=== PATIENT | male | born 1980 | race Hispanic/Latino ===

== ENCOUNTER 2022-12-04 12:01 | Emergency (ER) | payer MEDICAID, SELFPAY ==
--- NOTE | ~2022-12-04 | XR_ITS ---
EXAMINATION: XR finger 4th RT min 2V INDICATION: Right fourth finger pain TECHNIQUE: Three views of the right fourth finger are obtained. COMPARISON: None available FINDINGS: Bone alignment is normal. There is no fracture. There is soft tissue swelling of the finger . IMPRESSION: 1. Soft tissue swelling without acute osseous abnormality. Reviewed, dictated and finalized at location [facility]
[2022-12-04 12:12] VITALS: BP 121/82; PULSE 55; RESP 16; TEMP 37.1; O2SAT 99
--- NOTE | 2022-12-04 13:29 | ED.GENADULT ---
HPI - General Adult General Chief complaint: Extremity Injury, Upper Stated complaint: right ring finger injury Time Seen by Provider: 12/04/22 13:20 Source: patient, RN notes reviewed and old records reviewed Mode of arrival: ambulatory Limitations: no limitations, language barrier and other (son here to interpret for father) History of Present Illness HPI narrative: 42 year old male accompanied by son presents to express care with complaints of injury to his right 4th finger when he was walking a horse and the horse got scared and pulled on the rope causing his right ring finger to become hyperextended. Patient concerned for possible fracture due to discomfort and swelling of right 4t finger. Circulation sensation and mobility to right 4th finger intact MD complaint: injury to left ring finger Onset (ago): hour(s) (1130 today) Location: right and upper extremity (4th finger) Severity scale (1-10): 6 Treatments prior to arrival: none Related Data Allergies Allergy/AdvReac Type Severity Reaction Status Date / Time No Known Allergies Allergy Verified 12/04/22 13:37 Review of Systems Review of Systems: CONSTITUTIONAL: Denies fever, chills, or sweats. EYES: Denies visual changes, redness, or discharge. ENT: Denies rhinorrhea, congestion, sore throat, or otalgia. CARDIOVASCULAR: Denies chest pain, palpitations, or edema. RESPIRATORY: Denies cough or dyspnea. GASTROINTESTINAL: Denies abdominal pain, nausea, vomiting, or diarrhea. GENITOURINARY: Denies dysuria or hematuria. SKIN: Denies rash or itching. MUSCULOSKELETAL: Denies back pain,positive for right 4th finger discomfort, or myalgia. NEUROLOGIC: Denies headache, numbness, or weakness. PSYCHIATRIC: Denies anxiety or depression. All systems reviewed & are unremarkable except as noted in HPI and below PMFSH Comments At time of signature, agree with nursing past medical, surgical, social and family history. There is no relevant family history pertinent to the presenting complaint Exam Narrative: GENERAL: Well-appearing, well-nourished, and in no acute distress. HEAD: Normocephalic, atraumatic. EYES: PERRLA and EOMI. ENT: Nares clear, no rhinorrhea or epistaxis. Mucous membranes moist.TM's normal with good light reflex, throat pink with no lesions or exudates. NECK: Supple.no lymphadenopathy CHEST: Clear to auscultation. No respiratory distress.SAO2 99% on room air HEART: Regular rate and rhythm. No murmur heard. Normal peripheral pulses. ABDOMEN: Soft, nontender, nondistended, normal active bowel sounds. EXTREMITIES: Normal range of motion. mild edema to mid aspect of right 4th finger with full mobility of left 4th finger and no obvious deformity. SKIN: Warm, dry, no rash. NEURO: No focal deficits. Alert and oriented x3. Course Course Emergency Course: Patient is aware of diagnosis, understands and agrees to treatment plan.? Anticipatory guidance given.? Patient agrees to follow-up as directed and is aware of reasons to seek care at the emergency department. Portions of this record may have been created with voice recognition software Level of Care: Express Care Visit Vital Signs Vital signs: Vital Signs Temperature 37.1 C 12/04/22 12:12 Pulse Rate 55 L 12/04/22 12:12 Respiratory Rate 16 12/04/22 12:12 Blood Pressure 121/82 12/04/22 12:12 Pulse Oximetry 99 12/04/22 12:12 Oxygen Delivery Room Air 12/04/22 12:12 Temperature 37.1 C 12/04/22 12:12 Pulse Rate 55 L 12/04/22 12:12 Respiratory Rate 16 12/04/22 12:12 Blood Pressure 121/82 12/04/22 12:12 Pulse Oximetry 99 12/04/22 12:12 Oxygen Delivery Room Air 12/04/22 12:12 Reviewed Medical Decision Making MDM Narrative Medical decision making narrative: Exam findings and imaging show no acute concerns or changes; patient is non-toxic appearing and is in no distress.? Patient is appropriate for outpatient treatment and follow-up Medical Records Medical records reviewed: Yes I reviewe
== END 2022-12-04 13:47 | disposition home or self-care (01) ==
PROVIDERS: Emergency Provider Registered Nurse
DX: S60.041A Contusion of right ring finger without damage to nail, initial encounter (principal); X50.9XXA Other and unspecified overexertion or strenuous movements or postures, initial encounter; Y93.K1 Activity, walking an animal
CPT/HCPCS: 73140; 99213; G0463

== ENCOUNTER 2024-04-06 19:25 | Emergency (ER) | payer OTHER, SELFPAY ==
--- NOTE | ~2024-04-06 | XR_ITS ---
EXAMINATION: XR foot RT min 3V DATE: 04/06/2024 19:44 INDICATION: Right foot injury. TECHNIQUE: 4 views of right foot were obtained. COMPARISON: None. FINDINGS: Bone alignment is normal. No fracture. 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 There is an enthesophyte at plantar aspect of calcaneal tuberosity. IMPRESSION: 1. No fracture. Reviewed, dictated and finalized at location E. IMPRESSION: 1. No fracture.
--- NOTE | 2024-04-06 19:31 | ED.LOWEXIN ---
HPI - Extremity Injury (Lower) General Chief Complaint: Extremity Injury, Lower Stated Complaint: right foot injury Time Seen by Provider: 04/06/24 19:45 Source: patient and RN notes reviewed Mode of arrival: ambulatory Limitations: no limitations History of Present Illness HPI Narrative: 43-year-old male presents with concern for right foot pain. Reports last week he dropped a piece of [place] countertop on his foot. He reports pain when weight-bearing. Denies pain with rest. Reports he used a pain cream MD complaint: foot injury Related Data Allergies Allergy/AdvReac Type Severity Reaction Status Date / Time No Known Allergies Allergy Verified 04/06/24 19:31 Review of Systems Review of Systems: CONSTITUTIONAL: Denies malaise, chills, sweats, or fever. SKIN: Denies rash or itching, open skin, laceration, abrasion, redness, warmth, swelling. MUSCULOSKELETAL: Reports right foot pain NEUROLOGIC: Denies numbness, weakness All systems reviewed & are unremarkable except as noted in HPI and below PMFSH Comments At time of signature, agree with nursing past medical, surgical, social and family history. There is no relevant family history pertinent to the presenting complaint Exam Narrative: GENERAL: Well-appearing, well-nourished, and in no acute distress. HEAD: Normocephalic, atraumatic. EYES: PERRLA, conjunctivae clear NECK: Supple. CHEST: Speaks in full sentences. No respiratory distress. HEART: Regular rate and rhythm. Normal and equal peripheral pulses. EXTREMITIES: Right foot, digits have grossly normal strength and sensation, normal range of motion. No edema or ecchymosis. Normal sensation with sensitivity to light touch and pain. No point tenderness. No open wounds, no skin tenting, no devitalized tissue or atrophy, no trophic changes, no obvious deformity, alignment normal, nearby joints and structures intact. Distal pulses palpable and equal bilaterally, skin warm, dry, pink. Capillary refill less than 3 seconds. SKIN: Warm, dry, no rash. NEURO: Alert and oriented x3. PSYCH: Normal mood and affect Course Course Emergency Course: Patient is aware of diagnosis, understands and agrees to treatment plan. Anticipatory guidance given. Patient agrees to follow-up as directed and is aware of reasons to seek care at the emergency department. Portions of this record may have been created with voice recognition software Level of Care: Express Care Visit Vital Signs Vital signs: Reviewed. MDM - Extremity Injury (Lower) MDM Narrative Medical decision making narrative: Patients injury and pain is consistent with musculoskeletal etiology. No signs of neurological or vascular compromise on exam. Compartments and tissues are soft without signs of compartment syndrome. Pain is felt appropriate for further evaluation on an outpatient basis. Critical Care Time Critical Care Time Critical Care Time: No Discharge Plan Discharge Clinical Impression: Contusion of foot Patient Disposition: Home, Self-Care Condition: Stable Instructions: Contusion in Adults (ED) Additional Instructions: Avoid activities that cause pain until the pain subsides. Ice to the area 20-30 minutes 4-6 times a day Elevate above heart Tylenol for lesser pain Ibuprofen regularly for the next 2-3 days for the inflammation Follow up with your primary care provider if the condition is not improving within 1 week. If the condition worsens with numbness, tingling, decrease sensation with weakness seek treatment in the emergency room immediately. Follow-up/Referrals: Patti,ANTWON Alba [Primary Care Provider] - Stand Alone Forms: Work/School Release IP Time of Disposition: 19:54
[2024-04-06 19:42] VITALS: BP 117/77; PULSE 68; RESP 16; TEMP 37.7; O2SAT 99
== END 2024-04-06 19:59 | disposition home or self-care (01) ==
PROVIDERS: Emergency Provider Nurse Practitioner; PCP Physician Assistant
DX: S90.31XA Contusion of right foot, initial encounter (principal); W20.8XXA Other cause of strike by thrown, projected or falling object, initial encounter
CPT/HCPCS: 73630; 99213; G0463

== ENCOUNTER 2024-07-28 15:31 | Emergency (ER) | payer OTHER, SELFPAY ==
--- NOTE | ~2024-07-28 | XR_ITS ---
XR lumbar spine 2-3V DATE: 07/28/2024 16:18 INDICATION: Mid low back pain after lifting injury 2 days ago TECHNIQUE: AP, lateral, coned lateral lumbosacral views COMPARISON: None FINDINGS: There is minimal dextroscoliosis. There is minimal degenerative spurring of the lumbar spi ne. No fracture or bone destruction or spondylolisthesis. The lumbar pedicles are intact. The sacroil iac joints are intact. IMPRESSION: Mild dextroscoliosis Minimal degenerative spurring Reviewed, dictated and finalized at location A.
[2024-07-28 15:45] VITALS: BP 123/71; PULSE 61; RESP 16; TEMP 36.9; O2SAT 99
--- NOTE | 2024-07-28 15:57 | ED.BACK ---
HPI - Back Pain/Injury General Chief Complaint: Back Pain/Injury Stated Complaint: back injury Time Seen by Provider: 07/28/24 15:57 Source: patient and family Mode of arrival: ambulatory Limitations: no limitations and language barrier History of Present Illness HPI Narrative: 44-year-old male presents with complaint lower back pain radiating to left buttock and left hip. Yesterday while at work patient lifted a piece of [place] countertop and had sudden pain to low back. Ambulatory with steady gait. No radiation of pain to lower extremities. No numbness or tingling. No loss of bowel or bladder. Taking Tylenol to treat pain. All systems reviewed and negative except as noted above. Related Data Allergies Allergy/AdvReac Type Severity Reaction Status Date / Time No Known Allergies Allergy Verified 07/28/24 15:48 Review of Systems Review of Systems: GENERAL: This is a well-nourished, well-developed patient, in no apparent distress. HEAD: normocephalic, atraumatic. EYES: PERRL. Sclera clear/white. Vision is grossly intact. EARS: External ears normal NOSE: External nose normal NECK: Neck supple, non-tender without lymphadenopathy, masses or thyromegaly. CARDIOVASCULAR: Regular rate and rhythm without murmurs, gallops, or rubs. RESPIRATORY: Clear to auscultation. Breath sounds equal bilaterally. No wheezes, rales, or rhonchi. SKIN: warm, Dry, intact with no suspicious lesions or rash, good texture and turgor. NEURO: awake, alert, and oriented to person, place and time. There were no obvious focal neurologic abnormalities. EXTREMITIES: No joint tenderness, effusion, or edema noted. No calf tenderness. Negative Homans sign bilaterally. BACK: Tenderness to lumbar spine L4-L6. No deformity. Tenderness to left SI. Lower extremity strength 5/5 bilaterally. Course Course Level of Care: Express Care Visit Vital Signs Vital signs: Vital Signs Temperature 36.9 C 07/28/24 15:45 Pulse Rate 61 07/28/24 15:45 Respiratory Rate 16 07/28/24 15:45 Blood Pressure 123/71 07/28/24 15:45 Pulse Oximetry 99 07/28/24 15:45 Oxygen Delivery Room Air 07/28/24 15:45 Temperature 36.9 C 07/28/24 15:45 Pulse Rate 61 07/28/24 15:45 Respiratory Rate 16 07/28/24 15:45 Blood Pressure 123/71 07/28/24 15:45 Pulse Oximetry 99 07/28/24 15:45 Oxygen Delivery Room Air 07/28/24 15:45 Reviewed MDM - Back Pain/Injury MDM Narrative Medical decision making narrative: Patient is aware of diagnosis, understands and agrees to treatment plan. Anticipatory guidance given. Patient agrees to follow-up as directed and is aware of reasons to seek care at the emergency department. Portions of this record may have been created with voice recognition software Discussed x-ray results with patient. Lumbar spine is negative for fracture. Will treat lumbar strain with muscle relaxant, prednisone and ibuprofen. Recommend patient does low back exercises. Follow-up with primary care physician as needed. No neuro deficits at discharge. Differential Diagnosis Differential diagnosis: Likely lumbar radiculopathy, sciatica and strain of lumbar region Imaging Data My impression: agree with radiologist Radiologist's impression: XR lumbar spine 2-3V DATE: 07/28/2024 16:18 INDICATION: Mid low back pain after lifting injury 2 days ago TECHNIQUE: AP, lateral, coned lateral lumbosacral views COMPARISON: None FINDINGS: There is minimal dextroscoliosis. There is minimal degenerative spurring of the lumbar spine. No fracture or bone destruction or spondylolisthesis. The lumbar pedicles are intact. The sacroiliac joints are intact. IMPRESSION: Mild dextroscoliosis Minimal degenerative spurring Discharge Plan Discharge Clinical Impression: Strain of lumbar region Patient Disposition: Home, Self-Care Condition: Stable Instructions: Low Back Strain (ED), Lower Back Exercises
== END 2024-07-28 17:00 | disposition home or self-care (01) ==
PROVIDERS: Emergency Provider Nurse Practitioner Family; PCP Physician Assistant
DX: S39.012A Strain of muscle, fascia and tendon of lower back, initial encounter (principal); X50.0XXA Overexertion from strenuous movement or load, initial encounter; Y99.0 Civilian activity done for income or pay
CPT/HCPCS: 72100; 99213; G0463